=== PATIENT | female | born 1985 | race Caucasian/White ===

== ENCOUNTER 2016-07-12 09:51 | Day surgery (SDC) | payer SELFPAY ==
[2016-07-12] VITALS (9 sets, daily range): BP systolic 111–129; BP diastolic 79–93; PULSE 72–82; RESP 9–25; O2SAT 91–99
[~2016-07-12] VITALS: Ht 165.1 cm; Wt 98.5 kg
[~2016-07-12 09:51] MED LIST: Clindamycin 600 mg/50 mL D5W IV SCH; DEX5 PO; FLUD0.1T PO; MELO-259 PO
[2016-07-12] MEDS ORDERED: Dexamethasone 4 mg/mL Inj ONE (09:52)
[2016-07-12] MEDS ORDERED: fentaNYL-PF 50 mCg/mL 2 mL Inj ONE (09:52)
[2016-07-12] MEDS ORDERED: HYDROmorphone 2 mg/mL Inj ONE (09:52)
[2016-07-12] MEDS ORDERED: Ondansetron 2 mg/mL 2 mL Inj ONE (09:52)
[2016-07-12] MEDS ORDERED: Propofol 10,000 mCg/mL 20 mL Inj ONE (09:52)
[2016-07-12] MEDS: Lactated Ringer's 1,000 ML IV SCH ×2 (10:21→13:19)
[2016-07-12] MEDS ORDERED: ACET325T51 PO (10:24)
--- NOTE | 2016-07-12 12:27 | PCM.HPANE ---
Patient Data Date of Service: Jul 12, 2016 (1761) Surgeon Admitting Provider: Attending Provider:Matt Hou MD Primary Care Physician:Nay Other Provider:Matt Da Silva Anesthesia Reason for Visit Right Acl Tear Ht/WT & BMI Height (Feet): 5 Height (Inches): 5 Weight (Kilograms): 98.5 Body Mass Index 36.00 Allergies Coded Allergies: Penicillins (Unverified Allergy, Unknown, RASH CHILD, 07/12/16) ENTERED FROM UNCODED ALLERGIES hydrocodone (Verified Allergy, Unknown, HIVES, 07/12/16) Uncoded Allergies: PENICILLIN (Allergy, Unknown, UNKNOWN, 07/06/16) Past Anesthesia History Anesthesia History: Denies:: Anesthesia Reactions, Malignant Hyperthermia Diabetes History Hx Diabetes?: No MRSA MRSA: No Medications Home Meds Incl Beta Adenike: No Reported Medications Acetaminophen 325 Mg [id number] Mg PO Q4H PRN For Fever Ref 0 07/12/16 Meloxicam 7.5 Mg Tablet7.5 Mg PO BID 30 Days Ref 0 07/06/16 Fludrocortisone Acetate 0.1 Mg Tablet0.1 Mg PO DAILY Ref 0 07/06/16 Dexamethasone 0.5 Mg Tab1 Mg PO DAILY Ref 0 DAILY FOR 5 DAYS 07/06/16 History History of ENT Problems?: No Hx of Heart Problems?: No Cardiovascular History: Denies:: Heart Murmur Hypertension Hx of Respiratory Problem?: No Respiratory History: Denies:: Use of C-PAP Machine Hx Neurologic Problems?: No Hx of GI Problems?: No Hx of Problems?: No Female Hx: Denies:: Currently Skin History: Denies:: History Skin Disorders? Pressure Ulcers Hx Musculoskeletal Problems?: Yes Musculoskeletal History: Positive for:: Musculoskeletal Trauma (S/P RT KNEE MENISECTOMY 2014 RT ACL/MENISCAL TEAR=CURRENT PROBLEM) Hx of Psycho/Social Problems?: No Hx Surgeries?: Yes (RT KNEE MENISECTOMY) Hx Any Other Health Problems?: Yes Other History: Positive for:: Endocrine Disease (HX OF ADRENAL INSUFFICIENCY) Denies:: Cancer Hospitalization Thyroid Disease History Blood Transfusions: Denies:: Blood Transfusions Hx Diabetes: No Have You Smoked inLast 12 mo: Yes (HAS AGREED TO QUIT DURING SURGERY/REHAB PERIOD) Stop/Bang S-Snoring: Do You Snore Loudly: No T-Tired: feel tired, fatigued: No O-Obsered: Observed not breath: No P-Blood Pressure: treated: No B- Body Mass Index > 35 kg/m2: No A- Age over 50: No N- Neck Large Circumference: No G- Gender Male: No ERNIE Total Score: 0 ERNIE Risk Assessment: Low Risk, <3 Yes Risk Assessment Category Category 1A: Patient has history of documented sleep apnea, and HAS NOT received any narcotic, sedative or anesthesia administration during this stay. Category 1B: Patient has history of documented sleep apnea, and HAS received any narcotic , sedative or anesthesia administration during this stay Category 2: Patient has SUSPECTED Obstructive Sleep Apnea, and HAS received any narcotic , sedative or anesthesia administration during this stay. Category 3: Patient has SUSPECTED Obstructive Sleep Apnea and HAS NOT received narcotic, sedative or anesthesia administration during this stay. Category 4: Outpatient in Procedural Areas with known sleep apnea or who screen positive for High Risk via the STOP/BANG questionnaire. Exam Exam Vital Signs Vital Signs Date Time Temp Pulse Resp B/P Pulse Ox O2 Delivery O2 Flow Rate FiO2 07/12/16 10:33 36.5 77 16 111/79 95 Room Air General Appearance: Alert, Oriented X3, Cooperative HEENT/AIRWAY: MP 1 Lungs: Clear to Auscultation Heart: Exam Unremarkable Meds/Labs/Diagnostics Admission Meds Current Medications Lactated Ringer's (Lr) 1,000 ml @ 120 mls/hr Q8H20M IV Last administered on t 10:21; Start 07/12/16 at 05:00; Stop 07/12/16 at 13:19 Plan Impression Patient chart reviewed, patient interviewed and anesthestic plan with risks, benefits, and alternatives discussed, and informed consent obtained. NPO Status: 07/12 ASA Physical Status: ASA2 Mod Systemic Disease Anesthetic Plan: GA, Regional Block (FEMORAL NERVE BLOCK FOR POST OP PAIN CONTROL) Bene/Risks/Altern/Consents: Yes HP Complete Prior to Induction: Yes Yoni Stovall MD Jul 12, 2016 12:27
[2016-07-12] MEDS ORDERED: Lactated Ringer's 500 ML IV PRN (12:28)
[2016-07-12] MEDS ORDERED: Lactated Ringer's 1,000 ML IV SCH (12:28)
[2016-07-12] MEDS ORDERED: Phenylephrine 10,000 mCg/mL Inj IVPUSH PRN (12:30)
[2016-07-12] MEDS ORDERED: MetoCLOpramide 5 mg/mL 2 mL Inj IVPUSH PRN (12:30)
[2016-07-12] MEDS ORDERED: fentaNYL-PF 50 mCg/mL 2 mL Inj IVPUSH PRN (12:30)
[2016-07-12] MEDS ORDERED: Ondansetron 2 mg/mL 2 mL Inj IVPUSH PRN (12:30)
[2016-07-12] MEDS ORDERED: HYDROmorphone 1 mg/mL Inj IVPUSH PRN (12:30)
[2016-07-12] MEDS ORDERED: Dexamethasone 4 mg/mL Inj IVPUSH PRN (12:30)
[2016-07-12] MEDS ORDERED: EPHEDrine Sulfate 50 mg/mL Inj IVPUSH PRN (12:30)
[2016-07-12] MEDS ORDERED: Ropivacaine-PF 0.5% 30 mL Inj INFILTRATE ONE (13:19)
[2016-07-12] MEDS ORDERED: Morphine PF 0.5 mg/mL 10 mL Inj ONE (13:49)
[2016-07-12] MEDS ORDERED: Lactated Ringer's 1,000 ML IV ONE (14:23)
--- NOTE | 2016-07-12 15:16 | PCM.ANEP1 ---
Post Anesthesia Phase 1 PACU Phase 1 Assessment Date of Service: Jul 12, 2016 (1225) Vital Signs 89/74, 82, 12, 97%, 36.7 Vital Signs Date Time Temp Pulse Resp B/P Pulse Ox O2 Delivery O2 Flow Rate FiO2 07/12/16 10:33 36.5 77 16 111/79 95 Room Air Anesthetic Administered: GA Level of Alertness: Awake, talking WEBER's with Equal Strength: Yes Pain: No Nausea or Vomiting: No Oxygen Delivery: Simple Mask Lungs: Clear to Auscultation Dermatome Level: Full Sensation Summary UNEVENTFUL GA. BLOCK APPEARS TO BE WORKING WELL. TOURNIQUET PAIN NOT COVERED WHICH EXPLAINS THE HIGHER ANESTHESIA REQUIREMENTS INTRAOP. Yoni Stovall MD Jul 12, 2016 15:16
--- NOTE | 2016-07-12 15:16 | PCM.ANEP2 ---
Post Anesthesia Evaluation ASA/CMS Post Anesthesia VS in Patient's Normal Range?: Yes Resp Stable; Airway Patent?: Yes CV Function & Hydration Stable: Yes Mental Status Recovered?: Yes Pain control Satisfactory?: Yes N/V Control Satisfactory?: Yes Yoni Stovall MD Jul 12, 2016 15:16
[2016-07-12] MEDS ORDERED: Ketorolac 15 mg/mL Inj IVPUSH ONE (15:20)
[2016-07-12] MEDS ORDERED: HYDROcodone-APAP 5-325 mg Tablet PO PRN (15:20)
--- NOTE | 2016-07-12 15:29 | PCM.ORTHOP ---
Orthopedic Operative Report Date of Service: Jul 12, 2016 (0177) Pre Operative Diagnosis Right knee anterior cruciate ligament tear, medial meniscus tear, lateral meniscus tear, chondromalacia Post Operative Diagnosis Right knee anterior cruciate ligament tear, medial meniscus tear, chondromalacia Procedure Right knee arthroscopy, anterior cruciate ligament reconstruction, medial meniscus repair, chondroplasty, partial synovectomy Surgeon Surgeon: Matt Hou MD Assistants: Mik Amador Indication for Procedure Right knee anterior cruciate ligament tear Findings Per dictation Details of Procedure Surgical arthroscopy of the right knee with anterior cruciate ligament reconstruction with tibialis anterior allograft. Fixation is an Arthrex endobutton and a 8-10 bio IntraFix. 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 Without the qualified social services assistant being present, it would have extended the operative procedure and made the procedure technically more difficult to perform. INDICATIONS: The patient is Honey Jang who is a 30-year-old female patient with a prolonged history of right knee giving way. The patient has had continued episodes of instability. The patient has restored their range of motion and is now brought to the operating room for ACL reconstruction, possible partial medial and lateral meniscectomy versus medial and lateral meniscal repair, chondroplasty and debridement. The risks, benefits, and alternatives of surgery were discussed with the patient. The risks included but were not limited to infection, bleeding, damage to vessels and nerves, loss of motion, continued pain, re-tear of the meniscus, deep venous thrombosis, and complications due to anesthesia including nerve injury, myocardial infarction, stroke, , etc. The patient stated understanding of the nature of the surgical procedure and gave written and verbal consent to proceed. PROCEDURE: The patient was brought to the operating room and placed supine on the operating room table. General anesthesia was induced and an adductor canal was placed. The right lower extremity was examined under anesthesia. Range of motion was 0 degrees of extension to 135 degrees of flexion. There was no varus or valgus or posterolateral instability. The patient had no instability to varus or valgus stress at 0 or 30 degrees. The patient had a 2+ Sergio and drawer with a positive pivot shift. The right lower extremity was then prepped and draped in the usual fashion. A tourniquet was placed proximally on the thigh over a bias stockinette. A standard anterolateral parapatellar stab wound was created. The knee joint was entered with a blunt- tipped obturator, followed by the 30-degree video arthroscope. An anteromedial portal was established under arthroscopic control. A routine arthroscopic survey was performed. The suprapatellar pouch was unremarkable. The undersurface of the patella showed grade 2/3 chondral malacia. A shaver was used to debride the tissue to a stable base. The patella appeared to track centrally within the trochlear groove. The medial and lateral gutters were inspected and there was no loose body seen. There was no hypertrophied plica. There was moderate synovitis in the medial and lateral compartments.The popliteal hiatus was entered and was unremarkable. The lateral compartment was entered. The articular surfaces of the lateral femoral condyle was largely well maintained. There was no chondromalacia adjacent to the notch. There was no chondromalacia along the central aspect of the weight bearing lateral tibial plateau. The lateral meniscus was intact and stable to probing including the posterior horn and root. The intercondylar notch was visualized. The anterior cruciate ligament was torn midsubstance. There was an empty lateral wall small torn strands of anterior cruciate ligament attached. Posteromedially there was no loose body seen. The posterior cruciate ligament was visualized and appeared intact. The medial compartment was entered. The articular surfaces of the medial femoral condyle and medial tibial plateau were visualized. There was 2/3 chondromalacia noted on the medial femoral condyle, and grade 2/3 chondromalacia noted on the medial tibial plateau. The medial meniscus was visualized and a horizontal posterior horn tear was noted with the flap connected to the capsule. A rasp was used to freshen up the surface, a meniscus repair was performed using [employer] FasT-Fix. The meniscus was stable to probing after fixation with the posterior root stable to probing. Attention was turned to reconstruction of the anterior cruciate ligament. Following exsanguination with an Esmarch bandage the tourniquet was inflated to 275 mm of mercury. Using a motorized shaver a notchplasty was performed, exposing the lateral wall and roof of the notch, identifying the [id number] position. The stump of the anterior cruciate ligament was debrided. An Arthrex guide was placed intra-articularly between the tibial spines in line with the anterior horn of the lateral meniscus. A Justin wire was then inserted into the knee through a 2 cm incision made over the proximal medial tibia. The incision was deepened through the subcutaneous tissue with subperiosteal dissection achieved. Bleeding points were coagulated with the Bovie electrocautery. A fresh frozen tibialis allograft was opened and prepared at the back table, accommodating a 9 mm graft on the femoral side and 9 mm graft on the tibial side. Tibial drilling was then carried out first with a 5 mm followed by a 9 mm cylindrical reamer with the guide set at 55 degrees. The Beath pin was drilled out the femoral cortex and skin. The femoral tunnel was then created,with an Arthrex flipcutter. Depth-gauging confirmed the tunnel length. An Arthrex EndoButton was selected. The graft was inserted intra- articularly and the EndoButton was deployed. The graft was cycled for 17 cycles with 25 pounds of force to pre-load the graft. Tibial fixation was carried out using a 8-10 PEEK Intra-Fix in 10 degrees of flexion with a posterior drawer. At the completion of surgery the patient had a firm stable Sergio. The patient had a 0 firm Sergio and a negative pivot shift. There was no evidence for any roof or lateral wall impingement. The tourniquet was deflated at 66 minutes. The knee was irrigated with two liters of lactated Ringer's solution. Excess fluid was drained. The tibial wounds were then copiously irrigated with bacitracin solution and closed in layers with #0, #2- 0 and #3-0 Vicryl. The skin was reapproximated with #4-0 Monocryl. The knee was injected with 20 cc of 0.5% plain ropivacaine and 4 mg of Duramorph. A dry sterile dressing was applied, followed by a bulky bandage and MELINA stocking. A postoperative TROM brace was applied locked in full extension. The patient was awakened in the Operating Room and transported to the Recovery Room in satisfactory condition. The patient appeared to tolerate the procedure well. At the completion of surgery the patient had soft compartments, palpable pulses , and brisk capillary refill. There were no complications noted. I discussed at length the risks, complications and implications of tobacco products and its effect on the treatment plan and outcomes. The patient has voiced understanding and has agreed to cease consumption of such products for a minimum of the duration of the entire course of treatment. Please keep dressing clean dry and intact. Do not remove dressing until follow- up in clinic. If the dressing becomes soaked, you may remove the outer gauze and placed Band-Aids on the wounds. Do NOT weight-bear. Do Not Bend Your Knee. You may place a pillow under your heel and NOT your knee. You will follow up in clinic with me in 10-14 days for suture removal, and placement of new Steri- Strips. You will follow-up with me at 6 weeks postop and start PT. While you progress in your rehab and will be released once cleared by PT around 9-12 months. Please see me prior to full release. Please keep the affected extremity elevated when possible. [Please take aspirin as prescribed. You may use ice and/or heat as needed for comfort. preferably ice during the first 48- 72 hours. Please feel free to call with any further questions, comments, and/or concerns. Grafts, Implants: Implants-See Implant Record Complications There were no periprocedural complications identified. Condition Stable Anesthetic Administered: GA Catheters: None Output, Estimated Blood Loss: 20 Blood Admin during surgery: No Surgical Cast or Splint: Knee Immobilizer Surgical Specimen Removed: No Specimen sent to Pathology: No copies to: Matt Hou MD, Christopher L MD Jul 12, 2016 15:29
[2016-07-12] MEDS ORDERED: oxyCODONE-Acetamin 5-325 mg Tablet PO ONE (16:03)
== END 2016-07-12 23:59 | disposition home or self-care (01) ==
LOC: SAS 09:51
PROVIDERS: ATTEND Orthopaedic Surgery
DX: M23.51 Chronic instability of knee, right knee (principal); M94.261 Chondromalacia, right knee; M23.221 Derangement of posterior horn of medial meniscus due to old tear or injury, right knee; F17.210 Nicotine dependence, cigarettes, uncomplicated; Z79.899 Other long term (current) drug therapy
CPT/HCPCS: 29875; 29881; 29888; C1713; C1762; J2270; J2274; J2795; J7120